=== PATIENT | female | born 1985 | race Caucasian/White ===

== ENCOUNTER 2017-05-10 05:13 | Inpatient (IN) ==
[2017-05-08 11:36] LABS: MANUAL DIFF NEEDED? NO
[2017-05-08 12:10] LABS: BASO% 0.1 % (0.0-0.8); EOS# 0.17 X1000 (0.0-0.7); EOS% 1.5 % (0.0-10.0); HEMOGLOBIN 11.9 g/dL (12.0-16.0); IMM GRAN# 0.03 X1000 (0.0-0.04); IMM GRAN% 0.3 % (0.0-0.5); LYMPH# 2.12 X1000 (1.2-3.4); LYMPH% 18.5 % (20.5-51.1); MCH 29.2 PG (27-31); MCHC 33.1 g/dL (33-37); MCV 88.2 FL (81-99); MONO# 0.77 X1000 (0.11-0.59); MONO% 6.7 % (1.7-9.3); NEUT% 72.9 % (42.2-75.2); PLT 213 X1000 (130-400); RBC 4.08 XMIL (4.2-5.4)
[2017-05-10] MEDS ORDERED: KEFZOL 1 GM/D5W 1 GM/50 ML IVPB IV PRN (05:15)
[2017-05-10] MEDS ORDERED: BICITRA PO ONE (05:17)
[2017-05-10] MEDS ORDERED: SODIUM CHLORIDE 0.9% INJ ONE (05:18)
[2017-05-10] MEDS ORDERED: PEPCID IV ONE (06:00)
[2017-05-10] MEDS: LR 1,000 ML IV SCH ×2 (06:15→08:00)
[2017-05-10 07:46] LABS: URINE SOURCE VOIDED
[2017-05-10] MEDS ORDERED: NEO-SYNEPHRINE ONE (07:49)
[2017-05-10] MEDS ORDERED: PITOCIN ONE (07:50)
[2017-05-10] MEDS ORDERED: ROBINUL ONE (07:51)
[2017-05-10] MEDS ORDERED: DURAMORPH ONE (07:59)
[2017-05-10] MEDS ORDERED: DEMEROL IM PRN (08:07)
[2017-05-10] MEDS ORDERED: PITOCIN 20 UNITS/LR 20 UNITS/1,000 ML IV.SOLN IV ONE (08:07)
[2017-05-10] MEDS ORDERED: PITOCIN IM PRN (08:07)
[2017-05-10] MEDS ORDERED: AMBIEN PO PRN (08:07)
[2017-05-10] MEDS ORDERED: M-M-R II VACCINE SUBQ ONE (08:07)
[2017-05-10] MEDS ORDERED: PHENERGAN IM PRN (08:07)
[2017-05-10] MEDS ORDERED: PERCOCET-10 PO PRN (08:07)
[2017-05-10] MEDS ORDERED: DEMEROL PO PRN ×2 (08:07)
[2017-05-10] MEDS ORDERED: HYDROXYZINE PO PRN (08:07)
[2017-05-10] MEDS ORDERED: BOOSTRIX VACCINE IM ONE (08:07)
[2017-05-10] MEDS ORDERED: DULCOLAX PR PRN (08:07)
[2017-05-10] MEDS ORDERED: PERCOCET-5 PO PRN (08:07)
[2017-05-10] MEDS ORDERED: CYTOTEC PO PRN (08:07)
[2017-05-10] MEDS ORDERED: HYDROXYZINE IM PRN (08:07)
[2017-05-10] MEDS ORDERED: MYLICON PO PRN (08:07)
[2017-05-10 08:08] LABS: BILIRUBIN URINE NEGATIVE (NEGATIVE); BLOOD URINE TRACE (NEGATIVE); CLARITY SL. CLOUDY (CLEAR); COLOR YELLOW; GLUCOSE URINE NEGATIVE (NEGATIVE); LEUKOCYTES URINE 2+ (NEGATIVE); NITRITE URINE NEGATIVE (NEGATIVE); PROTEIN URINE NEGATIVE (NEGATIVE); UROBILINOGEN URINE NORMAL
[2017-05-10 08:11] LABS: UR AMPHETAMINES QUAL NONE DETECTED (NONE DETECT); UR BARBITUATES QUAL NONE DETECTED (NONE DETECT); UR BENZODIAZEPIN QUAL NONE DETECTED (NONE DETECT); UR CANNABINOIDS QUAL NONE DETECTED (NONE DETECT); UR COCAINE QUAL NONE DETECTED (NONE DETECT); UR MDMA QUAL NONE DETECTED (NONE DETECT); UR METHADONE QUAL NONE DETECTED (NONE DETECT); UR METHAMPHETAMINE QUAL NONE DETECTED (NONE DETECT); UR OPIATES QUAL NONE DETECTED (NONE DETECT); UR OXYCODONE QUAL NONE DETECTED (NONE DETECT); UR PCP QUAL NONE DETECTED (NONE DETECT); UR TCA QUAL NONE DETECTED (NONE DETECT)
[2017-05-10] MEDS ORDERED: TORADOL ONE (08:27)
[2017-05-10] MEDS ORDERED: ZOFRAN ONE (08:27)
[2017-05-10] MEDS ORDERED: ZOFRAN IV PRN ×2 (09:08)
[2017-05-10] MEDS ORDERED: BENADRYL IV PRN (09:08)
[2017-05-10] MEDS ORDERED: ZOFRAN ODT PO PRN (09:08)
[2017-05-10] MEDS ORDERED: NARCAN INJ PRN (09:08)
[2017-05-10] MEDS ORDERED: MORPHINE IV PRN (09:08)
[2017-05-10] MEDS ORDERED: DEMEROL IV PRN (09:09)
[2017-05-10] MEDS: MYLICON PO SCH ×4 (15:17→20:03)
[2017-05-10] MEDS: TORADOL IV SCH ×4 (15:24→21:25)
[2017-05-10] MEDS: PITOCIN 10 UNITS/LR 10 UNIT/1,000 ML IV.SOLN IV SCH (17:07)
[2017-05-10] MEDS: PERICOLACE PO SCH (20:04)
[2017-05-11] MEDS: PITOCIN 10 UNITS/LR 10 UNIT/1,000 ML IV.SOLN IV SCH (01:10)
[2017-05-11] MEDS: TORADOL IV SCH (02:42)
[2017-05-11 06:12] LABS: HEMATOCRIT 30.5 % (37.0-47.0); HEMOGLOBIN 9.7 g/dL (12.0-16.0); MCH 28.7 PG (27-31); MCHC 31.8 g/dL (33-37); MCV 90.2 FL (81-99); MPV 11.6 FL (7.4-10.4); RBC 3.38 XMIL (4.2-5.4)
[2017-05-11] MEDS ORDERED: LR 1,000 ML IV SCH (08:07)
[2017-05-11] MEDS: MYLICON PO SCH ×4 (08:21→20:45)
[2017-05-11] MEDS: MOTRIN PO PRN ×2 (15:45→23:50)
[2017-05-11] MEDS: PERICOLACE PO SCH (20:45)
[2017-05-12 08:08] VITALS: BP 135/80
== END 2017-05-12 08:30 | disposition home or self-care (01) ==
LOC: P.LD 05:13 → P.WC 14:38
PROVIDERS: ADMIT Obstetrics & Gynecology; ATTEND Obstetrics & Gynecology